=== PATIENT | male | born 1965 | race Caucasian/White ===

== ENCOUNTER → 2020-10-22 | Outpatient (CLI) | payer OTHER ==
[~2020-10-22] MED LIST: AMBI10TA PO; HYDR-4517 PO; SOMA350T PO
--- NOTE | 2020-10-22 16:26 | REP ---
INDICATION: MS EXACERBATION. COMPARISON: Comparison MRI study is from March 09, 2014.. TECHNIQUE: Sagittal and axial T1 and T2-weighted scans are acquired in the usual fashion with and without fat saturation. Sequences include spin echo, turbo spin-echo, and STIR imaging sequences. FINDINGS: There is straightening of the normal cervical lordosis. Cervical vertebral body heights are preserved. Alignment is normal. Sagittal and axial images taken at the C2-3 level show left posterior disc protrusion with discogenic spurring and left-sided neural foraminal narrowing. This is more pronounced than on the 2014 study. At C3-4, there is diffuse disc bulging. This effaces the ventral subarachnoid space. Canal size is borderline. There is bilateral uncovertebral spurring producing foraminal narrowing. At C4-C5, there is a moderate size right posterior focal disc protrusion compressing the thecal sac and compressing the spinal cord. There is some ligamentum flavum hypertrophy as well at this level contributing to moderate central canal stenosis at the C4-5 level. Just below the disc margin, there is an intrasubstance T2 hyperintense lesion in the right lateral aspect of the cervical cord consistent with edema and or small focal myelomalacia lesion. This is a new finding. There is bilateral neural foraminal narrowing right more advanced than left at this level. The cord compression and disc protrusion are more pronounced than on the 2014 study. At C5-C6, there is a moderate to large left posterior focal disc protrusion producing thecal sac and cord compression. This was present previously and appears essentially unchanged. There is left-sided neural foraminal narrowing. There is central canal stenosis at C5-6. At C6-C7, there is mild diffuse disc bulging. Facet hypertrophy is noted. No cord compression is seen. Neural foramina appear adequate. The C7-T1 level shows a small central focal disc protrusion without cord compression. IMPRESSION: There has been progressive degenerative spondylosis since 2014 study. There is a right posterior disc protrusion at C4-5 compressing the spinal cord. There is moderate central canal stenosis at this level. There is an intramedullary T2 hyperintense lesion in the substance of the spinal cord on the right just below the 4 5 disc consistent with myelomalacia. There is a moderate to large left posterior focal disc protrusion at C5-6 which is unchanged. There is a left posterior disc protrusion at C2-3 which is somewhat more pronounced. <Electronically signed by Didier Lopez > 10/22/20 [id number]
== END ==
LOC: M RAD 13:46
PROVIDERS: ATTEND Internal Medicine
DX: G95.9 Disease of spinal cord, unspecified (principal); M54.2 Cervicalgia

== ENCOUNTER → 2021-08-25 | Outpatient (CLI) | payer OTHER ==
[~2021-08-25] MED LIST changes: +CARI1TAB7; +D3 +TAB PO; +GASTROGRAFIN SOLUTION 30ML (Q9963) As Ordered ONE; +ISOVUE-370 76% 100ML VIAL As Ordered ONE; +MULT-90 PO; +NICOINH INH; +OXYC-1; +ROSU40TA4 PO
== END ==
LOC: M RAD 08:15
PROVIDERS: ATTEND Internal Medicine Medical Oncology
DX: D72.820 Lymphocytosis (symptomatic) (principal); R59.1 Generalized enlarged lymph nodes
CPT/HCPCS: 70491; 71260; 74177; Q9963; Q9967

== ENCOUNTER → 2021-09-18 | Outpatient (CLI) | payer OTHER ==
[~2021-09-18] MED LIST changes: -GASTROGRAFIN SOLUTION 30ML (Q9963) As Ordered ONE; -ISOVUE-370 76% 100ML VIAL As Ordered ONE; -OXYC-1; +OXYC-1 PO
== END ==
LOC: M PLARAD 10:39
PROVIDERS: ATTEND Internal Medicine Medical Oncology
DX: C91.10 Chronic lymphocytic leukemia of B-cell type not having achieved remission (principal)
CPT/HCPCS: 78815; A9552

== ENCOUNTER → 2021-10-23 | Outpatient (CLI) | payer OTHER ==
[2021-10-23 12:18] LABS: ALBUMIN 3.5 GM/DL (3.2-5.2); ALT/SGPT 18 U/L (12-78); BILIRUBIN,TOTAL 0.3 MG/DL (0.2-1.0); BLOOD UREA NITROGEN 20 MG/DL (7-18); CALCIUM LEVEL 8.9 MG/DL (8.5-10.1); CARBON DIOXIDE LEVEL 29 MEQ/L (21-32); CHLORIDE LEVEL 110 MEQ/L (98-107); CREATININE FOR GFR 0.89 MG/DL (0.70-1.30); GLOMERULAR FILTRATION RATE > 60.0 (>56); GLUCOSE, FASTING 110 MG/DL (70-100); POTASSIUM SERUM 4.7 MEQ/L (3.5-5.1); SODIUM LEVEL 140 MEQ/L (136-145); TOTAL PROTEIN 6.6 GM/DL (6.4-8.2)
== END ==
LOC: M LAB 11:25
PROVIDERS: ATTEND Internal Medicine
DX: E87.5 Hyperkalemia (principal)

== ENCOUNTER → 2021-10-23 | Outpatient (CLI) | payer OTHER | LOC: M LABSMTC 10:37 | PROVIDERS: ATTEND Neurological Surgery | DX: Z20.822 Contact with and (suspected) exposure to COVID-19 (principal) ==

== ENCOUNTER → 2022-01-26 | Outpatient (CLI) | payer OTHER ==
[~2022-01-26] MED LIST changes: +GASTROGRAFIN SOLUTION 30ML (Q9963) As Ordered ONE; +ISOVUE-370 76% 100ML VIAL As Ordered ONE
== END ==
LOC: M RAD 15:00
PROVIDERS: ATTEND Internal Medicine Medical Oncology
DX: D72.820 Lymphocytosis (symptomatic) (principal)
CPT/HCPCS: 70491; 71260; 74177; Q9963; Q9967

== ENCOUNTER → 2022-04-12 | Outpatient (CLI) | payer OTHER ==
[~2022-04-12] MED LIST changes: -GASTROGRAFIN SOLUTION 30ML (Q9963) As Ordered ONE; -ISOVUE-370 76% 100ML VIAL As Ordered ONE; +XANA0.5T PO
== END ==
LOC: M LABSMTC 11:30
PROVIDERS: ATTEND Anesthesiology
DX: Z01.812 Encounter for preprocedural laboratory examination (principal); Z11.52 Encounter for screening for COVID-19

== ENCOUNTER 2022-04-17 12:51 | Day surgery (SDC) | payer OTHER ==
[~2022-04-17] VITALS: Ht 167.6 cm; Wt 69.3 kg
[~2022-04-17 12:51] MED LIST changes: +NS 1,000 ML IV ONE
[2022-04-17] MEDS ORDERED: fentaNYL 100 MCG/2 ML INJECTION As Ordered ONE (13:33)
[2022-04-17] MEDS ORDERED: LIDOCAINE 2% 100MG/5ML SDV (FOR ANES.) As Ordered ONE (13:33)
[2022-04-17] MEDS ORDERED: propofoL 200 MG/20 ML VIAL As Ordered ONE (13:33)
[2022-04-17 14:51] VITALS: BP 144/81
== END 2022-04-17 15:15 | disposition home or self-care (01) ==
LOC: M OPP 12:51
PROVIDERS: ATTEND Internal Medicine Gastroenterology
DX: K29.70 Gastritis, unspecified, without bleeding (principal); Z79.02 Long term (current) use of antithrombotics/antiplatelets; Z79.891 Long term (current) use of opiate analgesic; Z79.899 Other long term (current) drug therapy; Z91.018 Allergy to other foods; C91.10 Chronic lymphocytic leukemia of B-cell type not having achieved remission; F17.200 Nicotine dependence, unspecified, uncomplicated; E78.00 Pure hypercholesterolemia, unspecified; M19.90 Unspecified osteoarthritis, unspecified site; F41.9 Anxiety disorder, unspecified; Z80.41 Family history of malignant neoplasm of ovary
CPT/HCPCS: 43239; 88305; J3010

== ENCOUNTER → 2022-09-07 | Outpatient (CLI) | payer MEDICARE, OTHER ==
[~2022-09-07] MED LIST changes: +GASTROGRAFIN SOLUTION 30ML As Ordered ONE; +ISOVUE-370 76% 100ML VIAL As Ordered ONE; -NS 1,000 ML IV ONE
== END ==
LOC: M RAD 09:33
PROVIDERS: ATTEND Internal Medicine Hematology & Oncology
DX: C91.10 Chronic lymphocytic leukemia of B-cell type not having achieved remission (principal); M50.20 Other cervical disc displacement, unspecified cervical region; M54.9 Dorsalgia, unspecified; Z91.013 Allergy to seafood
CPT/HCPCS: 70491; 71260; 74177; Q9963; Q9967

== ENCOUNTER → 2023-01-05 | Outpatient (CLI) | payer OTHER ==
[~2023-01-05] MED LIST changes: -GASTROGRAFIN SOLUTION 30ML As Ordered ONE; -ISOVUE-370 76% 100ML VIAL As Ordered ONE
== END ==
LOC: M RAD 11:09
DX: M47.22 Other spondylosis with radiculopathy, cervical region (principal)

== ENCOUNTER → 2023-08-30 | Outpatient (CLI) | payer OTHER ==
[~2023-08-30] MED LIST changes: +B COCAP4 PO; +BACT800T5 PO; +CHOL1250 PO; +CYMB60CA4 PO; +HYDR1CRE30 TOP; +HYDR25OIN TOP; +LIDO1PAD TOP; +MICO2CRE42 TOP; +NARC1SPR NARES; +OXYC-673 PO; +SOMA250T PO; +TERB1CRE2 TOP; +THERTAB52 PO; +VENC100T PO; +XANA0.25 PO
== END ==
LOC: M RAD 09:31
PROVIDERS: ATTEND Internal Medicine Hematology & Oncology
DX: D73.89 Other diseases of spleen (principal)

== ENCOUNTER → 2023-12-02 | Outpatient (CLI) | payer MEDICARE ==
[~2023-12-02] MED LIST changes: -ROSU40TA4 PO; +ROSU40TA63 PO
== END ==
LOC: M RAD 07:34
PROVIDERS: ATTEND Physician Assistant Surgical
DX: Z98.1 Arthrodesis status (principal)

== ENCOUNTER → 2024-05-08 | Outpatient (CLI) | payer OTHER, MEDICARE ==
[~2024-05-08] MED LIST changes: -ROSU40TA63 PO; +ROSU40TA81 PO; +VARE0.5T; +VARE1TAB2
== END ==
LOC: M CLY 12:02
PROVIDERS: ATTEND Family Medicine
DX: R05.1 Acute cough (principal); R06.2 Wheezing

== ENCOUNTER → 2024-06-02 | Outpatient (REF) | payer MEDICARE | LOC: M SFHCCLAY 14:58 | PROVIDERS: ATTEND Physician Assistant | DX: R05.8 Other specified cough (principal) ==

== ENCOUNTER → 2024-06-04 | Outpatient (REF) | payer MEDICARE | LOC: M SFHCCLAY 06:58 | PROVIDERS: ATTEND Physician Assistant | DX: R05.8 Other specified cough (principal) ==

== ENCOUNTER → 2024-06-25 | Outpatient (REF) | payer MEDICARE ==
[2024-06-25 18:22] LABS: BASO % 0.3 % (0.0-1.0); EOS % 0.1 % (0.0-3.0); HEMATOCRIT 47.6 % (42.0-52.0); HEMOGLOBIN 15.9 g/dl (13.5-17.5); LYMPH # 0.4 10^3/uL (1.5-5.0); LYMPH % 3.7 % (24.0-44.0); MEAN CORPUSCULAR HEMOGLOBIN 31.4 pg (27.0-33.0); MEAN CORPUSCULAR HGB CONC 33.4 g/dl (32.0-36.5); MEAN CORPUSCULAR VOLUME 93.9 fl (80.0-96.0); MONO # 0.1 10^3/uL (0.0-0.8); MONO % 0.7 % (2.0-8.0); NEUTROPHILS # 11.2 10^3/uL (1.5-8.5); NEUTROPHILS % 94.9 % (36.0-66.0); PLATELET COUNT, AUTOMATED 319 10^3/uL (150-450); RED BLOOD COUNT 5.07 10^6/uL (4.30-6.10); WHITE BLOOD COUNT 11.8 10^3/uL (4.0-10.0)
[2024-06-25 18:35] LABS: HEMOGLOBIN A1c 5.8 % (4.0-6.0)
[2024-06-25 18:48] LABS: IRON (FE) 73 UG/DL (65-175)
[2024-06-25 18:49] LABS: ALKALINE PHOSPHATASE 144 U/L (40-129); ALT/SGPT 22 U/L (7.0-40); AST/SGOT 19 U/L (<34); BILIRUBIN,TOTAL 0.3 MG/DL (0.3-1.2); BLOOD UREA NITROGEN 20 MG/DL (9-23); CALCIUM LEVEL 9.4 MG/DL (8.5-10.1); CARBON DIOXIDE LEVEL 28 MMOL/L (20-31); CHLORIDE LEVEL 106 MMOL/L (98-107); CHOLESTEROL LEVEL 202 MG/DL (<200); CHOLESTEROL RISK RATIO 3.04 (<5); CREATININE FOR GFR 0.79 MG/DL (0.70-1.30); GLOMERULAR FILTRATION RATE > 60.0 (>56); GLUCOSE, FASTING 177 MG/DL (60-100); HDL CHOLESTEROL 66.3 MG/DL (>40); LDL CHOLESTEROL 118.1 MG/DL (<100); NON-HDL-C 135.7 MG/DL; POTASSIUM SERUM 4.8 MMOL/L (3.5-5.1); SODIUM LEVEL 140 MMOL/L (136-145); TRIGLYCERIDES LEVEL 88 MG/DL (<150)
[2024-06-25 18:50] LABS: FREE T4 1.47 NG/DL (0.89-1.76)
[2024-06-25 18:51] LABS: THYROID STIMULATING HORMONE 0.763 uIU/ML (0.55-4.78)
== END ==
LOC: M SFHCCLAY 13:48
PROVIDERS: ATTEND Physician Assistant
DX: C91.10 Chronic lymphocytic leukemia of B-cell type not having achieved remission (principal); E61.1 Iron deficiency; E78.2 Mixed hyperlipidemia; R93.89 Abnormal findings on diagnostic imaging of other specified body structures; R73.01 Impaired fasting glucose; Z13.29 Encounter for screening for other suspected endocrine disorder

== ENCOUNTER → 2024-06-25 | Outpatient (CLI) | payer OTHER, MEDICARE ==
[~2024-06-25] MED LIST changes: +ISOVUE-370 76% 100ML VIAL As Ordered ONE
== END ==
LOC: M RAD 16:31
PROVIDERS: ATTEND Physician Assistant
DX: R93.89 Abnormal findings on diagnostic imaging of other specified body structures (principal); J84.10 Pulmonary fibrosis, unspecified
CPT/HCPCS: 71260; Q9967

== ENCOUNTER → 2024-08-05 | Outpatient (REF) | payer MEDICARE, OTHER ==
[~2024-08-05] MED LIST changes: +CARI-555; -CARI1TAB7; -ISOVUE-370 76% 100ML VIAL As Ordered ONE
== END ==
LOC: M LAB REF 17:12
PROVIDERS: ATTEND Internal Medicine Pulmonary Disease
DX: J44.9 Chronic obstructive pulmonary disease, unspecified (principal)

== ENCOUNTER → 2025-02-15 | Outpatient (CLI) | payer OTHER ==
[~2025-02-15] MED LIST changes: -AMBI10TA PO; +ZOLP-533 PO
== END ==
LOC: M CLY 13:35
PROVIDERS: ATTEND Neurological Surgery
DX: M50.00 Cervical disc disorder with myelopathy, unspecified cervical region (principal)

== ENCOUNTER → 2025-05-11 | Outpatient (REF) | payer MEDICARE, OTHER ==
[2025-05-11 13:44] LABS: ALT/SGPT 28 U/L (7.0-40); AST/SGOT 25 U/L (<34); CALCIUM LEVEL 8.7 MG/DL (8.3-10.6); CARBON DIOXIDE LEVEL 29 MMOL/L (20-31); CHLORIDE LEVEL 106 MMOL/L (98-107); CHOLESTEROL LEVEL 204 MG/DL (<200); CHOLESTEROL RISK RATIO 3.09 (<5); CREATININE FOR GFR 0.92 MG/DL (0.70-1.30); GLOMERULAR FILTRATION RATE > 90.0 (>49); LDL CHOLESTEROL 116.0 MG/DL (<100); MAGNESIUM LEVEL 2.0 MG/DL (1.8-2.4); NON-HDL-C 138.0 MG/DL; POTASSIUM SERUM 4.5 MMOL/L (3.5-5.1); SODIUM LEVEL 140 MMOL/L (136-145); TRIGLYCERIDES LEVEL 110 MG/DL (<150)
[2025-05-11 14:17] LABS: ESTIMATED AVERAGE GLUCOSE 111.0 MG/DL (60-110)
== END ==
LOC: M SFHCCLAY 09:24
PROVIDERS: ATTEND Family Medicine
DX: R93.89 Abnormal findings on diagnostic imaging of other specified body structures (principal); R73.01 Impaired fasting glucose; E78.2 Mixed hyperlipidemia; Z13.29 Encounter for screening for other suspected endocrine disorder

== ENCOUNTER → 2025-05-14 | Outpatient (REF) | payer OTHER, MEDICARE ==
[2025-05-14 17:56] LABS: IRON (FE) 103 UG/DL (65-175); VITAMIN B12 LEVEL 323 PG/ML (211-911)
== END ==
LOC: M SFHCCLAY 14:10
PROVIDERS: ATTEND Family Medicine
DX: D64.9 Anemia, unspecified (principal)